=== PATIENT | male | born 1940 | race Caucasian/White ===

== ENCOUNTER 2020-10-14 09:57 | Inpatient (IN) | payer MEDICARE, OTHER ==
[~2020-10-14] VITALS: Ht 175.3 cm; Wt 98.8 kg
[2020-10-14] VITALS (7 sets, daily range): BP systolic 117–153; BP diastolic 68–97
[~2020-10-14 09:57] MED LIST: AMLO-258 PO; ASCO60LO PO; CALC-322 PO; MAGN27TA2 PO; MULT-1192 PO; MV-M1TAB20 PO; NIAC500T22 PO; UBID30CA11 PO; VITA1CAP PO; ZINC30CA PO
[2020-10-14 10:24] LABS: BASOPHILS % (AUTO) 0.9 % (0.0-5.0); EOSINOPHILS % (AUTO) 8.6 % (0.0-8.0); HEMATOCRIT 33.4 % (42-54); LYMPHOCYTES % (AUTO) 17.4 % (21.0-51.0); MEAN CORPUSCULAR HEMOGLOBIN 18.4 pg (27.0-33.0); MEAN CORPUSCULAR HGB CONC 28.1 g/dL (32.0-36.0); MEAN CORPUSCULAR VOLUME 65.4 fL (79-99); MONOCYTES % (AUTO) 5.4 % (3.0-13.0); NEUTROPHILS % (AUTO) 66.7 % (40.0-77.0); NUCLEATED RED BLOOD CELLS 0.2 % (0.0-0.19); PLATELET COUNT (AUTO) 364 K/uL (130-400); RED BLOOD CELL COUNT(AUTO) 5.11 MIL/uL (4.50-6.20); RED CELL DISTRIBUTION WIDTH 20.4 % (11.0-15.5); WHITE BLOOD COUNT (AUTO) 16.8 K/uL (4.8-10.8)
[2020-10-14 10:31] LABS: CREATININE 1.7 mg/dL (0.5-1.5); POTASSIUM 4.6 mmol/L (3.5-5.1)
[2020-10-14 10:33] LABS: INR 1.21 (0.85-1.15)
[2020-10-14 10:36] LABS: ALBUMIN 3.3 g/dL (3.5-5.0); BILIRUBIN,TOTAL 0.8 mg/dL (0.2-1.0); MAGNESIUM 2.3 mg/dL (1.80-2.40)
[2020-10-14 10:42] LABS: B-TYPE NATRIURETIC PEPTIDE 83 pg/mL (0-100)
[2020-10-14] MEDS ORDERED: DILTIAZEM 25MG INJ IVP PRN (11:30)
[2020-10-14] MEDS ORDERED: DILTIAZEM 125 MG/25 ML INJ 125 MG in 0.9%NACL 100ML 100 ML IV PRN (11:30)
[2020-10-14] MEDS ORDERED: MORPHINE 4 MG SYG IV ONE (11:30)
[2020-10-14] MEDS ORDERED: LACTULOSE 20 GM/30 ML UDCUP PO PRN (12:15)
[2020-10-14] MEDS ORDERED: ONDANSETRON 4MG INJ IV PRN (12:15)
[2020-10-14] MEDS ORDERED: DILTIAZEM 125 MG/25 ML INJ 125 MG in 0.9%NACL 100ML 100 ML IV SCH (12:15)
[2020-10-14] MEDS ORDERED: ACETAMINOPHEN 325 MG TAB PO PRN (12:15)
[2020-10-14] MEDS ORDERED: CEFTRIAXONE 1G VIAL IVP SCH (12:30)
[2020-10-14 12:42] LABS: HEMOGLOBIN A1C 5.9 % (4.0-6.0)
[2020-10-14] MEDS: 0.9%NACL 1000ML 1,000 ML IV SCH ×2 (13:57→22:15)
[2020-10-14 14:10] LABS: APPEARANCE,URINE SL CLOUDY (CLEAR); BILIRUBIN,URINE SMALL (NEGATIVE); COLOR,URINE RED (YELLOW); GLUCOSE, URINE (UA) 100 mg/dL (NEGATIVE); KETONES,URINE 5 mg/dL (NEGATIVE); LEUKOCYTE ESTERASE ,URINE TRACE (NEGATIVE); NITRATE,URINE POSITIVE (NEGATIVE); OCCULT BLOOD,URINE LARGE (NEGATIVE); PH,URINE 6.5 (5.0-8.0); PROTEIN,URINE >=300 mg/dL (NEGATIVE)
[2020-10-14 14:19] LABS: AMPHET/METH SCREEN,URINE NEGATIVE (NEGATIVE); BARBITURATE SCREEN, URINE NEGATIVE (NEGATIVE); BENZODIAZEPINES SCREEN,URINE NEGATIVE (NEGATIVE); CANNABINOID SCREEN,URINE NEGATIVE (NEGATIVE); COCAINE SCREEN,URINE NEGATIVE (NEGATIVE); OPIATE SCREEN,URINE POSITIVE (NEGATIVE); PHENCYCLIDINE SCREEN,URINE NEGATIVE (NEGATIVE)
[2020-10-14 14:33] LABS: BACTERIA,URINE Moderate /HPF (None Seen); MUCUS,URINE Few LPF (None Seen); RBC,URINE >100 /HPF (0-1); SQUAMOUS EPITHELIAL CELL,UR Few /HPF (0-2)
[2020-10-14 16:29] LABS: HEMATOCRIT 34.5 % (42-54)
[2020-10-14] MEDS: HYDROMORPHONE 0.5 MG SYG (0.5MG/0.5ML) IV PRN ×2 (16:34→21:45)
[2020-10-14] MEDS ORDERED: IRON POLYSACCHARIDES COMPLEX 150 MG CAPSULE PO SCH (21:00)
[2020-10-14] MEDS: 0.9%NACL 50ML IV SCH (21:00)
[2020-10-14] MEDS ORDERED: ZOSYN 3.375GM+NS 50ML 50 ML IV ONE (21:29)
[2020-10-14] MEDS: PIP/TAZ ZOSYN 3.375G 3.375 GM VIAL IVPB SCH (21:34)
[2020-10-14] MEDS: METOPROLOL TARTRATE 50 MG TAB PO SCH (21:34)
[2020-10-14] MEDS ORDERED: DIPHENHYDRAMINE HCL 25 MG CAPSULE PO ONE (22:00)
[2020-10-14 22:18] LABS: HEMATOCRIT 30.4 % (42-54)
[2020-10-14] MEDS: ACETAMINOPHEN 325 MG TAB PO PRN (22:23)
[2020-10-15] VITALS (25 sets, daily range): BP systolic 90–121; BP diastolic 54–80
[2020-10-15] MEDS ORDERED: ZOSYN 3.375GM+NS 50ML 50 ML IV ONE (03:09)
[2020-10-15] MEDS: HYDROMORPHONE 0.5 MG SYG (0.5MG/0.5ML) IV PRN ×4 (03:40→21:58)
[2020-10-15 04:53] LABS: HEMATOCRIT 29.6 % (42-54)
[2020-10-15 05:05] LABS: % IRON SATURATION 4.6 % (30-44)
[2020-10-15] MEDS: PIP/TAZ ZOSYN 3.375G 3.375 GM VIAL IVPB SCH (05:27)
[2020-10-15] MEDS ORDERED: CEFTRIAXONE 1G VIAL IVP SCH (09:00)
[2020-10-15] MEDS: Vitamin B Complex/Vit C/Folic Acid PO SCH (09:00)
[2020-10-15] MEDS: SODIUM BICARBONATE 650 MG TAB PO SCH (09:00)
[2020-10-15 11:40] LABS: ALBUMIN 2.9 g/dL (3.5-5.0); BILIRUBIN,TOTAL 0.5 mg/dL (0.2-1.0); CREATININE 1.5 mg/dL (0.5-1.5); MAGNESIUM 2.4 mg/dL (1.80-2.40); POTASSIUM 4.7 mmol/L (3.5-5.1); TOTAL PROTEIN, SERUM 6.9 g/dL (6.0-8.3)
[2020-10-15] MEDS: 0.9%NACL 50ML IV SCH (13:00)
[2020-10-15] MEDS ORDERED: PIP/TAZ ZOSYN 3.375G 3.375 GM VIAL IVPB SCH (13:00)
[2020-10-15] MEDS: METOPROLOL TARTRATE 50 MG TAB PO SCH ×2 (13:05→20:45)
[2020-10-15] MEDS: 0.9%NACL 50ML 50 ML IV SCH ×2 (14:00→20:45)
[2020-10-15] MEDS: ZOSYN 3.375GM +NS 50ML IV SCH ×2 (14:00→20:44)
[2020-10-15] MEDS ORDERED: ZOSYN 3.375 IV SCH (14:00)
[2020-10-15] MEDS ORDERED: GLYCOPYRROLATE 1 MG/5 ML SYRINGE ONE ×2 (14:04→15:47)
[2020-10-15] MEDS ORDERED: ONDANSETRON 4MG INJ ONE ×2 (14:04→15:48)
[2020-10-15] MEDS ORDERED: MIDAZOLAM HCL 1 MG/ML 2ML VIAL ONE (14:04)
[2020-10-15] MEDS ORDERED: SUCCINYLCHOLINE 200MG/10ML SYR ONE (14:04)
[2020-10-15] MEDS ORDERED: LIDOCAINE PF 100MG/5ML (2%) SYRINGE 5ML ONE (14:04)
[2020-10-15] MEDS ORDERED: DEXAMETHASONE SOD PHOSPHATE 10MG/ML 1ML VIAL ONE (14:04)
[2020-10-15] MEDS ORDERED: NEOSTIGMINE 5MG/5ML SYR IV ONE ×2 (14:05→15:47)
[2020-10-15] MEDS ORDERED: ROCURONIUM 10MG/1ML SYR 10 MG/ML ML ONE (14:05)
[2020-10-15] MEDS ORDERED: FENTANYL CITRATE PF 50 MCG/1 ML 2ML VIAL ONE (14:05)
[2020-10-15] MEDS ORDERED: PROPOFOL 10 MG/ML 20ML VIAL IV ONE (14:05)
[2020-10-15] MEDS ORDERED: ESMOLOL HCL 10 MG/ML 10 ML VIAL ONE (14:35)
[2020-10-15] MEDS ORDERED: METOPROLOL TARTRATE 1 MG/ML 5ML VIAL IV ONE (14:36)
[2020-10-15] MEDS ORDERED: AMINOCAPROIC ACID 5,000MG VIAL ONE (16:02)
[2020-10-15] MEDS ORDERED: LACTATED RINGERS 1000ML 1,000 ML IV ONE (17:14)
[2020-10-15] MEDS: 0.9%NACL 1000ML 1,000 ML IV SCH (17:41)
[2020-10-15] MEDS ORDERED: LACTATED RINGERS 1000ML 1,000 ML IV SCH (17:45)
[2020-10-15] MEDS ORDERED: OXYBUTYNIN 5 MG TAB.SR.24H PO PRN (19:15)
[2020-10-15] MEDS ORDERED: LACTATED RINGERS IV SCH (19:30)
[2020-10-15] MEDS ORDERED: AMINOCAPROIC ACID IV SCH (19:30)
[2020-10-15] MEDS: FAMOTIDINE 20MG VIAL IV SCH (20:45)
[2020-10-15] MEDS: ACETAMINOPHEN 325 MG TAB PO PRN (22:12)
[2020-10-16] MEDS: HYDROMORPHONE 0.5 MG SYG (0.5MG/0.5ML) IV PRN ×2 (03:01→08:13)
[2020-10-16 03:42] VITALS: BP 110/64
[2020-10-16] MEDS: ZOSYN 3.375GM +NS 50ML IV SCH ×3 (04:50→22:08)
[2020-10-16] MEDS: 0.9%NACL 50ML 50 ML IV SCH ×3 (04:50→22:08)
[2020-10-16] MEDS ORDERED: LACTATED RINGERS 1000ML 1,000 ML IV SCH (05:55)
[2020-10-16 05:58] LABS: BASOPHILS % (AUTO) 0.2 % (0.0-5.0); EOSINOPHILS % (AUTO) 0.1 % (0.0-8.0); HEMATOCRIT 27.2 % (42-54); LYMPHOCYTES % (AUTO) 9.6 % (21.0-51.0); MEAN CORPUSCULAR HEMOGLOBIN 18.4 pg (27.0-33.0); MEAN CORPUSCULAR HGB CONC 27.6 g/dL (32.0-36.0); MEAN CORPUSCULAR VOLUME 66.7 fL (79-99); MONOCYTES % (AUTO) 2.5 % (3.0-13.0); NEUTROPHILS % (AUTO) 86.7 % (40.0-77.0); NUCLEATED RED BLOOD CELLS 0.1 % (0.0-0.19); PLATELET COUNT (AUTO) 277 K/uL (130-400); RED BLOOD CELL COUNT(AUTO) 4.08 MIL/uL (4.50-6.20); RED CELL DISTRIBUTION WIDTH 20.1 % (11.0-15.5); WHITE BLOOD COUNT (AUTO) 16.2 K/uL (4.8-10.8)
[2020-10-16 06:28] LABS: ALBUMIN 2.5 g/dL (3.5-5.0); BILIRUBIN,TOTAL 0.3 mg/dL (0.2-1.0); CREATININE 1.2 mg/dL (0.5-1.5); POTASSIUM 4.7 mmol/L (3.5-5.1); TOTAL PROTEIN, SERUM 6.6 g/dL (6.0-8.3)
[2020-10-16 08:00] VITALS: BP 110/60
[2020-10-16] MEDS: Vitamin B Complex/Vit C/Folic Acid PO SCH (08:11)
[2020-10-16] MEDS: SODIUM BICARBONATE 650 MG TAB PO SCH (08:11)
[2020-10-16] MEDS: METOPROLOL TARTRATE 50 MG TAB PO SCH ×2 (08:12→22:15)
[2020-10-16] MEDS: ACETAMINOPHEN WITH CODEINE 1 TAB TAB PO PRN ×2 (11:00→16:52)
[2020-10-16 12:00] VITALS: BP 110/62
[2020-10-16] MEDS: TRAMADOL HCL 50 MG TABLET PO PRN ×2 (12:00→20:04)
[2020-10-16] MEDS ORDERED: COMPOUND IV MISC 1 EACH IVSOLN MISC PRN (15:15)
[2020-10-16] MEDS: IRON SUCROSE COMPLEX 100 MG in 0.9%NACL 50ML 50 ML IV SCH (16:53)
[2020-10-16 17:00] VITALS: BP 95/63
[2020-10-16 19:08] VITALS: BP 114/64
[2020-10-16] MEDS: FAMOTIDINE 20MG VIAL IV SCH (22:09)
[2020-10-16] MEDS ORDERED: HYDROXYZINE 25 MG TABLET PO SCH (22:30)
[2020-10-16 23:24] VITALS: BP 153/60
[2020-10-17 03:53] VITALS: BP 122/69
[2020-10-17 04:36] LABS: BASOPHILS % (AUTO) 0.4 % (0.0-5.0); EOSINOPHILS % (AUTO) 6.6 % (0.0-8.0); HEMATOCRIT 25.3 % (42-54); MEAN CORPUSCULAR HEMOGLOBIN 18.6 pg (27.0-33.0); MEAN CORPUSCULAR HGB CONC 28.1 g/dL (32.0-36.0); MEAN CORPUSCULAR VOLUME 66.2 fL (79-99); MONOCYTES % (AUTO) 6.3 % (3.0-13.0); NEUTROPHILS % (AUTO) 74.2 % (40.0-77.0); NUCLEATED RED BLOOD CELLS 0.3 % (0.0-0.19); PLATELET COUNT (AUTO) 272 K/uL (130-400); RED BLOOD CELL COUNT(AUTO) 3.82 MIL/uL (4.50-6.20); RED CELL DISTRIBUTION WIDTH 20.2 % (11.0-15.5); WHITE BLOOD COUNT (AUTO) 18.8 K/uL (4.8-10.8)
[2020-10-17 04:42] LABS: ALBUMIN 2.4 g/dL (3.5-5.0); BILIRUBIN,TOTAL 0.3 mg/dL (0.2-1.0); PHOSPHORUS 3.5 mg/dL (2.5-4.9); POTASSIUM 3.8 mmol/L (3.5-5.1); TOTAL PROTEIN, SERUM 6.2 g/dL (6.0-8.3)
[2020-10-17] MEDS: ZOSYN 3.375GM +NS 50ML IV SCH ×3 (05:55→20:26)
[2020-10-17] MEDS: HYDROMORPHONE 0.5 MG SYG (0.5MG/0.5ML) IV PRN ×2 (06:00→17:06)
[2020-10-17 08:25] VITALS: BP 109/60
[2020-10-17] MEDS: METOPROLOL TARTRATE 50 MG TAB PO SCH ×2 (09:21→20:25)
[2020-10-17] MEDS: Vitamin B Complex/Vit C/Folic Acid PO SCH (09:21)
[2020-10-17] MEDS: SODIUM BICARBONATE 650 MG TAB PO SCH (09:21)
[2020-10-17] MEDS: IRON SUCROSE COMPLEX 100 MG in 0.9%NACL 50ML 50 ML IV SCH (09:36)
[2020-10-17 12:13] VITALS: BP 123/59
[2020-10-17 12:14] VITALS: BP 123/59
[2020-10-17] MEDS: 0.9%NACL 50ML 50 ML IV SCH ×2 (13:53→20:27)
[2020-10-17] MEDS: ACETAMINOPHEN WITH CODEINE 1 TAB TAB PO PRN ×2 (14:03→20:26)
[2020-10-17 16:58] VITALS: BP 113/49
[2020-10-17 20:00] VITALS: BP 105/61
[2020-10-17] MEDS: FAMOTIDINE 20MG VIAL IV SCH (20:25)
[2020-10-18] VITALS (7 sets, daily range): BP systolic 102–148; BP diastolic 56–99
[2020-10-18 05:12] LABS: EOSINOPHILS % (AUTO) 14.5 % (0.0-8.0); HEMATOCRIT 28.1 % (42-54); LYMPHOCYTES % (AUTO) 15.7 % (21.0-51.0); MEAN CORPUSCULAR HEMOGLOBIN 18.3 pg (27.0-33.0); MEAN CORPUSCULAR VOLUME 67.7 fL (79-99); MONOCYTES % (AUTO) 6.4 % (3.0-13.0); NUCLEATED RED BLOOD CELLS 0.4 % (0.0-0.19); PLATELET COUNT (AUTO) 254 K/uL (130-400); RED BLOOD CELL COUNT(AUTO) 4.15 MIL/uL (4.50-6.20); RED CELL DISTRIBUTION WIDTH 20.9 % (11.0-15.5); WHITE BLOOD COUNT (AUTO) 16.8 K/uL (4.8-10.8)
[2020-10-18] MEDS: ZOSYN 3.375GM +NS 50ML IV SCH ×3 (05:26→22:16)
[2020-10-18] MEDS: 0.9%NACL 50ML 50 ML IV SCH ×3 (05:26→22:00)
[2020-10-18] MEDS: HYDROMORPHONE 0.5 MG SYG (0.5MG/0.5ML) IV PRN ×2 (05:27→15:45)
[2020-10-18 05:35] LABS: ALBUMIN 2.7 g/dL (3.5-5.0); BILIRUBIN,TOTAL 0.5 mg/dL (0.2-1.0); POTASSIUM 3.8 mmol/L (3.5-5.1); TOTAL PROTEIN, SERUM 6.7 g/dL (6.0-8.3)
[2020-10-18] MEDS: METOPROLOL TARTRATE 50 MG TAB PO SCH ×2 (08:12→20:07)
[2020-10-18] MEDS: IRON SUCROSE COMPLEX 100 MG in 0.9%NACL 50ML 50 ML IV SCH (08:12)
[2020-10-18] MEDS: Vitamin B Complex/Vit C/Folic Acid PO SCH (08:12)
[2020-10-18] MEDS: SODIUM BICARBONATE 650 MG TAB PO SCH (08:12)
[2020-10-18] MEDS ORDERED: HYDROMORPHONE 0.5 MG SYG (0.5MG/0.5ML) IV PRN (12:00)
[2020-10-18] MEDS: TRAMADOL HCL 50 MG TABLET PO PRN (18:36)
[2020-10-18] MEDS: FAMOTIDINE 20MG VIAL IV SCH (20:07)
[2020-10-18] MEDS: ACETAMINOPHEN WITH CODEINE 1 TAB TAB PO PRN (20:08)
[2020-10-19 03:46] LABS: HEMATOCRIT 26.3 % (42-54); MEAN CORPUSCULAR HEMOGLOBIN 18.1 pg (27.0-33.0); MEAN CORPUSCULAR HGB CONC 27.4 g/dL (32.0-36.0); MEAN CORPUSCULAR VOLUME 66.2 fL (79-99); NUCLEATED RED BLOOD CELLS 0.6 % (0.0-0.19); PLATELET COUNT (AUTO) 206 K/uL (130-400); RED BLOOD CELL COUNT(AUTO) 3.97 MIL/uL (4.50-6.20); RED CELL DISTRIBUTION WIDTH 21.2 % (11.0-15.5); WHITE BLOOD COUNT (AUTO) 14.2 K/uL (4.8-10.8)
[2020-10-19 03:55] LABS: CREATININE 0.9 mg/dL (0.5-1.5); POTASSIUM 3.7 mmol/L (3.5-5.1)
[2020-10-19 04:12] LABS: EOSINOPHILS % (MANUAL) 12 % (1-6); LYMPHOCYTES % (MANUAL) 10 % (22-44); MONOCYTES % (MANUAL) 3 % (2-9); SEGMENTED NEUTROPHILS % 75 % (40-70)
[2020-10-19 04:15] LABS: MAN.DIFF COMMENT-IMPRESSION MANUAL DIFFERENTIAL
[2020-10-19 04:23] VITALS: BP 111/69
[2020-10-19] MEDS: ZOSYN 3.375GM +NS 50ML IV SCH ×3 (05:56→20:43)
[2020-10-19] MEDS: 0.9%NACL 50ML 50 ML IV SCH ×3 (05:56→20:44)
[2020-10-19 07:23] VITALS: BP 140/80
[2020-10-19] MEDS: Vitamin B Complex/Vit C/Folic Acid PO SCH (08:46)
[2020-10-19] MEDS: SODIUM BICARBONATE 650 MG TAB PO SCH (08:46)
[2020-10-19] MEDS: METOPROLOL TARTRATE 50 MG TAB PO SCH ×2 (08:46→20:43)
[2020-10-19] MEDS: IRON SUCROSE COMPLEX 100 MG in 0.9%NACL 50ML 50 ML IV SCH (08:46)
[2020-10-19] MEDS: HYDROMORPHONE 0.5 MG SYG (0.5MG/0.5ML) IV PRN ×3 (08:46→23:43)
[2020-10-19] MEDS: ACETAMINOPHEN WITH CODEINE 1 TAB TAB PO PRN ×3 (10:18→20:44)
[2020-10-19 11:28] VITALS: BP 115/56
[2020-10-19] MEDS: TRAMADOL HCL 50 MG TABLET PO PRN (13:39)
[2020-10-19 15:53] VITALS: BP 107/77
[2020-10-19 19:42] VITALS: BP 120/75
[2020-10-19] MEDS: FAMOTIDINE 20MG VIAL IV SCH (20:43)
[2020-10-19 23:38] VITALS: BP 106/73
[2020-10-20 03:48] VITALS: BP 131/78
[2020-10-20 04:34] LABS: HEMATOCRIT 30.2 % (42-54); MEAN CORPUSCULAR HEMOGLOBIN 18.6 pg (27.0-33.0); MEAN CORPUSCULAR HGB CONC 27.2 g/dL (32.0-36.0); MEAN CORPUSCULAR VOLUME 68.6 fL (79-99); NUCLEATED RED BLOOD CELLS 0.5 % (0.0-0.19); RED BLOOD CELL COUNT(AUTO) 4.4 MIL/uL (4.50-6.20); RED CELL DISTRIBUTION WIDTH 22.6 % (11.0-15.5)
[2020-10-20 04:58] LABS: CREATININE 1.2 mg/dL (0.5-1.5); POTASSIUM 3.3 mmol/L (3.5-5.1)
[2020-10-20] MEDS: ZOSYN 3.375GM +NS 50ML IV SCH ×3 (05:04→20:18)
[2020-10-20] MEDS: 0.9%NACL 50ML 50 ML IV SCH ×3 (05:04→20:18)
[2020-10-20 07:44] VITALS: BP 126/80
[2020-10-20] MEDS: HYDROMORPHONE 0.5 MG SYG (0.5MG/0.5ML) IV PRN (08:59)
[2020-10-20] MEDS: Vitamin B Complex/Vit C/Folic Acid PO SCH (10:04)
[2020-10-20] MEDS: METOPROLOL TARTRATE 50 MG TAB PO SCH ×2 (10:04→20:17)
[2020-10-20] MEDS: SODIUM BICARBONATE 650 MG TAB PO SCH (10:04)
[2020-10-20] MEDS: ACETAMINOPHEN WITH CODEINE 1 TAB TAB PO PRN ×2 (10:05→20:17)
[2020-10-20 11:26] VITALS: BP 127/61
[2020-10-20] MEDS: FENTANYL 25 MCG/HR PATCH TD SCH (11:53)
[2020-10-20] MEDS: IRON SUCROSE COMPLEX 100 MG in 0.9%NACL 50ML 50 ML IV SCH (11:53)
[2020-10-20 15:32] VITALS: BP 154/78
[2020-10-20] MEDS: TRAMADOL HCL 50 MG TABLET PO PRN (16:55)
[2020-10-20 20:00] VITALS: BP 144/80
[2020-10-20] MEDS: FAMOTIDINE 20MG VIAL IV SCH (20:17)
[2020-10-20 23:37] VITALS: BP 132/69
[2020-10-21 03:13] VITALS: BP 123/76
[2020-10-21] MEDS: 0.9%NACL 50ML 50 ML IV SCH ×3 (05:41→20:20)
[2020-10-21] MEDS: ZOSYN 3.375GM +NS 50ML IV SCH ×3 (05:41→20:20)
[2020-10-21 07:47] VITALS: BP 142/68
[2020-10-21] MEDS: Vitamin B Complex/Vit C/Folic Acid PO SCH (10:03)
[2020-10-21] MEDS: SODIUM BICARBONATE 650 MG TAB PO SCH (10:04)
[2020-10-21] MEDS: METOPROLOL TARTRATE 50 MG TAB PO SCH ×2 (10:04→20:20)
[2020-10-21] MEDS: ACETAMINOPHEN WITH CODEINE 1 TAB TAB PO PRN ×2 (10:04→19:10)
[2020-10-21] MEDS: IRON SUCROSE COMPLEX 100 MG in 0.9%NACL 50ML 50 ML IV SCH (10:05)
[2020-10-21 11:19] VITALS: BP 149/63
[2020-10-21] MEDS ORDERED: POTASSIUM CHLORIDE 10% ELIXIR 20 MEQ/15 ML UDCUP PO PRN (14:45)
[2020-10-21] MEDS ORDERED: LIDOCAINE HCL-MPF 1% 2ML VIAL IV PRN (14:45)
[2020-10-21] MEDS ORDERED: POTASSIUM CHLORIDE 10MEQ/100ML 100 ML IV PRN (14:45)
[2020-10-21] MEDS: POTASSIUM CHLORIDE 10MEQ SR TAB PO ONE ×2 (15:08→15:09)
[2020-10-21] MEDS: KCL 20 MEQ ERTAB PO PRN ×3 (15:08→15:12)
[2020-10-21 15:40] VITALS: BP 112/71
[2020-10-21 19:00] VITALS: BP 158/86
[2020-10-21] MEDS: FAMOTIDINE 20MG VIAL IV SCH (20:20)
[2020-10-21] MEDS: HYDROMORPHONE 0.5 MG SYG (0.5MG/0.5ML) IV PRN (20:25)
[2020-10-22] VITALS (7 sets, daily range): BP systolic 114–150; BP diastolic 53–82
[2020-10-22 05:17] LABS: HEMATOCRIT 32.6 % (42-54); MEAN CORPUSCULAR HGB CONC 26.4 g/dL (32.0-36.0); MEAN CORPUSCULAR VOLUME 72.1 fL (79-99); NUCLEATED RED BLOOD CELLS 0.2 % (0.0-0.19); PLATELET COUNT (AUTO) 201 K/uL (130-400); RED BLOOD CELL COUNT(AUTO) 4.52 MIL/uL (4.50-6.20); RED CELL DISTRIBUTION WIDTH 24.9 % (11.0-15.5); WHITE BLOOD COUNT (AUTO) 16.2 K/uL (4.8-10.8)
[2020-10-22 05:35] LABS: ALBUMIN 2.5 g/dL (3.5-5.0); BILIRUBIN,TOTAL 0.5 mg/dL (0.2-1.0); CREATININE 1.3 mg/dL (0.5-1.5); MAGNESIUM 2.5 mg/dL (1.80-2.40); PHOSPHORUS 3.6 mg/dL (2.5-4.9); POTASSIUM 4.3 mmol/L (3.5-5.1); TOTAL PROTEIN, SERUM 6.8 g/dL (6.0-8.3)
[2020-10-22 06:02] LABS: BAND NEUTROPHILS % (MANUAL) 8 % (0-2); BASOPHILS % (MANUAL) 1 % (0-2); EOSINOPHILS % (MANUAL) 8 % (1-6); LYMPHOCYTES % (MANUAL) 13 % (22-44); MONOCYTES % (MANUAL) 4 % (2-9); SEGMENTED NEUTROPHILS % 66 % (40-70)
[2020-10-22 06:03] LABS: MAN.DIFF COMMENT-IMPRESSION MANUAL DIFFERENTIAL
[2020-10-22] MEDS: ZOSYN 3.375GM +NS 50ML IV SCH ×3 (06:05→20:06)
[2020-10-22] MEDS: HYDROMORPHONE 0.5 MG SYG (0.5MG/0.5ML) IV PRN ×2 (06:05→18:43)
[2020-10-22] MEDS: 0.9%NACL 50ML 50 ML IV SCH ×3 (06:05→20:06)
[2020-10-22] MEDS: METOPROLOL TARTRATE 50 MG TAB PO SCH ×2 (09:48→20:06)
[2020-10-22] MEDS: Vitamin B Complex/Vit C/Folic Acid PO SCH (09:48)
[2020-10-22] MEDS: IRON SUCROSE COMPLEX 100 MG in 0.9%NACL 50ML 50 ML IV SCH (09:48)
[2020-10-22] MEDS: SODIUM BICARBONATE 650 MG TAB PO SCH (09:48)
[2020-10-22] MEDS: ACETAMINOPHEN WITH CODEINE 1 TAB TAB PO PRN ×2 (09:49→14:15)
[2020-10-22] MEDS: FAMOTIDINE 20MG VIAL IV SCH (20:06)
[2020-10-23] MEDS: HYDROMORPHONE 0.5 MG SYG (0.5MG/0.5ML) IV PRN ×2 (00:39→06:45)
[2020-10-23 03:00] VITALS: BP 122/77
[2020-10-23] MEDS: ZOSYN 3.375GM +NS 50ML IV SCH (05:58)
[2020-10-23] MEDS: 0.9%NACL 50ML 50 ML IV SCH (05:58)
[2020-10-23 08:07] VITALS: BP 124/74
[2020-10-23] MEDS: Vitamin B Complex/Vit C/Folic Acid PO SCH (09:02)
[2020-10-23] MEDS: METOPROLOL TARTRATE 50 MG TAB PO SCH (09:02)
[2020-10-23] MEDS: IRON SUCROSE COMPLEX 100 MG in 0.9%NACL 50ML 50 ML IV SCH (09:02)
[2020-10-23] MEDS: SODIUM BICARBONATE 650 MG TAB PO SCH (09:03)
[2020-10-23] MEDS ORDERED: HYDROMORPHONE 0.5 MG SYG (0.5MG/0.5ML) IV PRN (09:15)
[2020-10-23] MEDS: FENTANYL 25 MCG/HR PATCH TD SCH (10:07)
[2020-10-23] MEDS: ACETAMINOPHEN WITH CODEINE 1 TAB TAB PO PRN (10:07)
[2020-10-23] MEDS ORDERED: FENTANYL 50 MCG/HR PATCH TD SCH (12:15)
[2020-10-23] MEDS ORDERED: HYDROCODONE/ACETAMINOPHEN 5/325 MG TAB PO SCH (12:15)
== END 2020-10-23 13:00 | disposition hospice, home (50) | DRG 666 ==
LOC: EDBD 09:57 → EDH 09:57 → OBSVTOIN 12:03 → EDHIP 12:03 → 4CH 14:21 → 2DH 20:15 → 4BH 10-17 03:36
PROVIDERS: ADMIT Internal Medicine; ATTEND Internal Medicine
PROC: 0TBD8ZZ Excision of Urethra, Via Natural or Artificial Opening Endoscopic (ICD-10-PCS; principal; 2020-10-15 14:29)
PROC: 0VT08ZZ Resection of Prostate, Via Natural or Artificial Opening Endoscopic (ICD-10-PCS; 2020-10-15 14:29)
PROC: 0TBC8ZX Excision of Bladder Neck, Via Natural or Artificial Opening Endoscopic, Diagnostic (ICD-10-PCS; 2020-10-15 14:29)
DX: C67.9 Malignant neoplasm of bladder, unspecified (principal); N17.9 Acute kidney failure, unspecified; E87.1 Hypo-osmolality and hyponatremia; C78.7 Secondary malignant neoplasm of liver and intrahepatic bile duct; N39.0 Urinary tract infection, site not specified; I48.91 Unspecified atrial fibrillation; D50.9 Iron deficiency anemia, unspecified; K42.9 Umbilical hernia without obstruction or gangrene; I12.9 Hypertensive chronic kidney disease with stage 1 through stage 4 chronic kidney disease, or unspecified chronic kidney disease; N18.30 Chronic kidney disease, stage 3 unspecified; Z82.0 Family history of epilepsy and other diseases of the nervous system; D64.9 Anemia, unspecified; Z82.5 Family history of asthma and other chronic lower respiratory diseases; Z82.49 Family history of ischemic heart disease and other diseases of the circulatory system; Z83.3 Family history of diabetes mellitus; Z82.3 Family history of stroke; N40.0 Benign prostatic hyperplasia without lower urinary tract symptoms; N43.3 Hydrocele, unspecified; Z79.899 Other long term (current) drug therapy; Z87.891 Personal history of nicotine dependence; Z20.822 Contact with and (suspected) exposure to COVID-19
CPT/HCPCS: 36415; 71045; 74176; 74430; 76770; 76870; 80048; 80053; 80305; 81001; 82550; 82728; 83036; 83540; 83550; 83735; 83880; 84100; 84153; 84443; 84484; 85014; 85018; 85025; 85027; 85610; 86850; 86900; 86901; 86923; 87088; 87635; 93005; 93306; 93356; 97039; A4346; A4354; G0378; J0330; J0696; J1100; J1170; J1756; J2001; J2250; J2270; J2405; J2543; J2704; J2710; J3010; J3490; J7030; J7120; Q0163; Q9958